=== PATIENT | male | born 1975 | race Hispanic/Latino ===

== ENCOUNTER 2018-09-29 09:57 | Day surgery (SDC) | payer BC ==
[~2018-09-29 09:57] MED LIST: LACTATED RINGERS 1,000 ML IV SCH
[2018-09-29] MEDS ORDERED: SUBLIMAZE IV PRN (10:46)
[2018-09-29] MEDS ORDERED: DEMEROL IV PRN (10:46)
[2018-09-29] MEDS ORDERED: NARCAN 0.4 MG/1 ML IV PRN (10:46)
[2018-09-29] MEDS ORDERED: ZOFRAN IV PRN (10:46)
--- NOTE | 2018-09-29 10:48 | Anesthesia Consultation ---
Anesthesia Consult and Med Hx Date of service: 09/29/18 - Airway Anesthetic Teeth Evaluation: Good ROM Head & Neck: Adequate Mental/Hyoid Distance: Adequate Mallampati Class: Class II Intubation Access Assessment: Good - Pulmonary Exam CTA: Yes - Cardiac Exam Cardiac Exam: RRR - Pre-Operative Health Status ASA Pre-Surgery Classification: ASA1, ASA2 Proposed Anesthetic Plan: General - Pulmonary Hx Smoking: No Hx Sleep Apnea: No (CARYL PRE SCREEN LOW RISK) - Cardiovascular System Hx Hypertension: Yes (RECENTLY HBP , BUT HAS NOT BEEN DX YET) - Central Nervous System Hx Back Pain: Yes (USING TENS UNIT) - Other Systems Hx Cancer: No
[2018-09-29] MEDS ORDERED: VERSED IV ONE (10:49)
--- NOTE | 2018-09-29 10:49 | Anesthesia Day of Surgery ---
Anesthesia Day of Surgery - Day of Surgery Patient Examined: Yes Patient H&P Reviewed: Yes Patient is NPO: Yes Beta Blockers: No Cardiac Clearance: No Pulmonary Clearance: No
[2018-09-29] MEDS ORDERED: MARCAINE 0.5% INFILTRATI ONE ×3 (11:53→12:59)
[2018-09-29] MEDS ORDERED: DIPRIVAN 10 MG/ML IV ONE ×2 (11:57→12:30)
[2018-09-29] MEDS ORDERED: SUBLIMAZE ONE (11:59)
[2018-09-29] MEDS ORDERED: VERSED ONE (12:00)
[2018-09-29] MEDS ORDERED: DECADRON ONE (12:39)
[2018-09-29] MEDS ORDERED: ZOFRAN ONE (12:39)
[2018-09-29] MEDS ORDERED: DILAUDID ONE (12:57)
--- NOTE | 2018-09-29 13:38 | Procedure Note ---
Date of procedure: 09/29/18 Pre-op diagnosis: Bilateral carpal tunnel syndrome, retained foreign body right forearm Post-op diagnosis: same Procedure: Bilateral Endoscopic Carpal Release with removal foreign bodies right forearm Procedure The patient was brought to the OR and placed on the OR table supine. Following induction and intubation both upper extremites prepped and draped in the usual sterile fashion. A time-out procedure done to identified to the patient correct operative sites. The right arm approached first, the arm exsanquinated and the tourniquet inflated to 250 mm mercury. The volar area overlying the foreign bodies incised using # 15 blade, 2 moderate sized glass-liked objects removed from the subcutaneous tissue without complication. Next a volar incision made over the distal wrist crease and taken down to superficial flexor sheath, using Loupe magnification synovial insurance rater followed by dilators inserted into the carpal canal next the arthroscope placed into the carpal canal and the transverse carpal ligament identified, with the scope inline with the 4th metacarpal the knife-blade elevated and the ligament released from distal to proximal, care was taken to perform second look procedure to ID any remaining impingement on the median nerve. The wound irrigated followed by routine closure and application of post op dressing. The tourniquet deflated on the right side. Next the left upper extremity approach in similar fashion. Following [place] and inflation of the tourniquet, a volar incision again made over the distal wrist crease and taken down the superficial flexor sheath, using Loupe magnification the sheath incised and the dialator, the arthroscope inserted into the carpal tunnel in line with 4th metacarpal, the transverse carpal ligament seen and released in usual fashion. The wound closed in usual fashion and post op dressing applied. He tolerated the procedure, upon extubation taken to the PACU in stable condition. Anesthesia: MAC Surgeon: RONY GASPAR Estimated blood loss: minimal Pathology: list (broken glass fragments) Specimen disposition: to lab Condition: stable Disposition: PACU
[2018-09-29] MEDS: DILAUDID IV PRN ×2 (13:55→14:05)
[2018-09-29] MEDS ORDERED: NORCO 7.5/325 ONE (14:22)
[2018-09-29] MEDS ORDERED: NORCO PO ONE (14:24)
[2018-09-29 15:54] VITALS: BP 139/78
== END 2018-09-29 15:30 | disposition home or self-care (01) ==
LOC: OR 09:57
PROVIDERS: ATTEND Orthopaedic Surgery
DX: G56.03 Carpal tunnel syndrome, bilateral upper limbs (principal); I10 Essential (primary) hypertension; M19.90 Unspecified osteoarthritis, unspecified site; Z18.9 Retained foreign body fragments, unspecified material; Z79.899 Other long term (current) drug therapy
CPT/HCPCS: 10120; 29848; 88300; J1100; J1170; J2250; J2405; J2704; J3010; J7120; 88302

== ENCOUNTER 2020-04-19 11:00 | Outpatient (CLI) | payer BC | END 2020-04-19 11:01 | disposition home or self-care (01) | LOC: SLR 11:00 | PROVIDERS: ATTEND Otolaryngology | DX: G47.33 Obstructive sleep apnea (adult) (pediatric) (principal) | CPT/HCPCS: G0399 ==